=== PATIENT | female | born 1975 | race African-American/Black ===

== ENCOUNTER 2016-08-29 11:15 | Emergency (ER) | payer OTHER ==
[~2016-08-29] VITALS: Ht 157.5 cm; Wt 114.5 kg
[2016-08-29 11:20] VITALS: BP 165/111; PULSE 86; RESP 16; O2SAT 98
[2016-08-29] MEDS ORDERED: ETON68IM3 SQ (11:23)
--- NOTE | 2016-08-29 11:48 | ED.REPORT ---
HPI-Extremity Problem Lower Date of Service Aug 29, 2016 ED Provider: Mario Judd PA-C Ely is an otherwise healthy 40-year-old female presenting with chief complaint of right knee pain. Patient reports her pain began insidiously yesterday, has been worsening the point where it is difficult for her to walk now. Denies trauma, redness, swelling, fever, numbness/tingling, reduced range of motion. Patient denies history of gout, knee surgery, knee pain. Nursing Notes Stated Complaint: KNEE PAIN Chief Complaint: Extremity Trauma Nursing Notes Reviewed: Yes Allergies: Coded Allergies: No Known Allergies (Verified Allergy, Unknown, 08/29/16) Scheduled PRN Acetaminophen (Acetaminophen) 500 Mg Tablet 500-1,000 MG PO Q6H PRN PRN For Pain Naproxen (Naproxen) 500 Mg Tab 500 MG PO BID PRN PRN For Pain Miscellaneous Medications Etonogestrel (Nexplanon) 68 Mg Implant 68 MG SQ General Time Seen by MD: 11:27 Chief Complaint Knee injury left Past Medical History Past Medical History Denies Review of Systems Review of Systems Note: Negative unless stated otherwise in history of present illness Physical Exam General: Well appearing, well developed, obese, no acute distress. Right hip: Full range of motion. Right knee: Full range of motion. Normal inspection with no redness, swelling, bruising. Negative heat. Negative tenderness over the medial and lateral joint lines, medial and lateral epicondyles, patella, tibial tuberosity. No Quinones's cyst noted. No laxity noted with varus/valgus stress, anterior and posterior drawer test. Grind test elicits pain. Right foot/ankle: Normal to inspection, nontender, full range of motion. DP and PT pulses 2+. Sensation and brisk capillary refill intact in distal phalanges. Head: Atraumatic, normocephalic. Eyes: No scleral icterus or injection. No discharge. Vision grossly intact. ENT: Voice clear, hearing grossly intact. Respiratory: No respiratory distress, no increased work of breathing. Speaks in complete sentences. Skin: Warm and dry. Neurological: Grossly nonfocal. Psychological: alert and oriented. Speech appropriate, linear and logical. Behavior appropriate. Initial Vital Signs Vital Signs (First) Date Time Temp Pulse Resp B/P Pulse Ox O2 Delivery O2 Flow Rate FiO2 6/12/17 11:20 36.1 86 16 165/111 98 Room Air Initial VS: Vital signs abnormal (elevated blood pressure) Re-Eval/Medical Decision Med Decision/Clinical Course Obese but otherwise healthy 4-year-old female presents with chief complaint of insidious onset right knee pain beginning yesterday. Finds the knee painful to walk on. Denies clicking, locking, instability. Denies trauma, fever, reduced range of motion. Denies history of knee surgery, knee pain. Physical examination reveals a normal-appearing knee, neuro vascularly intact distal, nontender and with full painless range of motion. Negative instability. Grind test elicits pain at the medial joint line. At this point I believe this is most likely to be a medial meniscus injury, and I am reassured regarding an emergent condition such as fracture, dislocation, infection, gout. Provided Yaron wrap, inspected by me to confirm circulation and sensation. Advise regarding [id number] analgesia, provide prescriptions. Verbally discussed primary care follow-up regarding her elevated blood pressure. Advised regarding primary care follow-up, provided emergency return precautions. Patient verbalized understanding of, and consent to, the plan. Discharge & Departure Impression: Primary Impression: Right medial knee pain Additional Impression: Elevated blood pressure reading Disposition: Home Discharge Condition All VS Reviewed: Yes Condition: Stable Patient Instructions: Knee Pain (ED) Additional Instructions: Evaluation in the emergency department for right knee pain includes history and physical examination, both of which are reassuring that this is unlikely to be caused by an immediately dangerous condition such as infection or fracture. I believe you are stable and safe to be sent home. Rest the knee is much as possible and keep it elevated to reduce swelling. We have placed him in an Yaron wrap here in the emergency department. Feel free to remove this to bathe or adjust for comfort. The pain is best treated with 500 mg of naproxen (Aleve) every 12 hours, or 1000 mg of acetaminophen (Tylenol) every 6 hours. These drugs can be taken at the same time for more severe pain. Follow-up with your primary care provider if your pain continues. At that point you can consider performing x-rays to assess for arthritis or initiating physical therapy. Return to emergency department for new or worsening symptoms including an inability to bend the knee, increasing redness, swelling in the knee or fever. Referrals: Andrea Mcginnis MD (PCP) EDSupervising Provider for APC: Denise Brink MD copies to: Andrea Mcginnis MD, Seth PA-C Aug 29, 2016 11:48
[2016-08-29] MEDS ORDERED: ACET-171 PO (12:03)
[2016-08-29] MEDS ORDERED: NPR500T PO (12:03)
[2016-08-29 12:45] VITALS: BP 154/110; PULSE 85; RESP 18; O2SAT 99
== END 2016-08-29 12:46 | disposition home or self-care (01) ==
LOC: SED 11:15
DX: M25.561 Pain in right knee (principal); R03.0 Elevated blood-pressure reading, without diagnosis of hypertension
CPT/HCPCS: 96372; 99283; J1885

== ENCOUNTER 2016-08-31 13:59 | Emergency (ER) | payer OTHER ==
[~2016-08-31] VITALS: Ht 157.5 cm; Wt 115.0 kg
[~2016-08-31 13:59] MED LIST: ACET-171 PO; ETON68IM3 SQ; NPR500T PO
[2016-08-31 14:11] VITALS: BP 152/112; PULSE 92; RESP 16; O2SAT 100
--- NOTE | 2016-08-31 14:45 | ED.REPORT ---
HPI-Extremity Problem Lower Date of Service Aug 31, 2016 ED Provider: Dino Melissa MD A 40 year old female with no pertinent medical history presents to the ED complaining of right knee pain. The pain began as a dull ache when she was walking at work three days ago and progressively worsened after this. She denies falls or trauma to begin the pain and has been resting the knee since. The pt was seen in the ED two days ago and diagnosed with a possible meniscus injury. She has not improved since and has been unable to get an appointment with her PCP. Nursing Notes Stated Complaint: R KNEE PAIN Chief Complaint: Extremity Trauma Nursing Notes Reviewed: Yes Allergies: Coded Allergies: No Known Allergies (Verified Allergy, Unknown, 08/29/16) Scheduled PRN Acetaminophen (Acetaminophen) 500 Mg Tablet 500-1,000 MG PO Q6H PRN PRN For Pain Naproxen (Naproxen) 500 Mg Tab 500 MG PO BID PRN PRN For Pain Miscellaneous Medications Etonogestrel (Nexplanon) 68 Mg Implant 68 MG SQ General Time Seen by MD: 14:44 Chief Complaint Knee injury right Hx Obtained From: Patient Arrived By: Walk-in Onset Occurred: 3 days ago Symptom Duration: Since onset Recent Healthcare: No recent hospitalization, Recent doctor visit Similar Sx Previous: No Past Medical History Past Medical History none reported Past Surgical History Reports: Smoking History Former Smoker (quit 10 years ago) Social History Other Social History: Good social support Ambulatory Status Independent Review of Systems Musculoskeletal: Reports: Joint pain (right knee), Denies: Neck pain Skin: Denies Rash Complete sys rev & neg: except as marked. Respiratory: Denies: Non-productive cough, Shortness of breath Cardiovascular: Denies: Chest pain GI: Denies: Abdominal pain Physical Exam Initial Vital Signs Vital Signs (First) Date Time Temp Pulse Resp B/P Pulse Ox O2 Delivery O2 Flow Rate FiO2 08/31/16 14:11 36.4 92 16 152/112 100 Room Air Initial VS: Reviewed Lower Extremity / Pelvis / MS: Neurologic intact, Vascular intact full range of motion of the right knee no tenderness with range of motion medial right knee effusion negative Enrico's Ankle / Foot: Atraumatic, Full range of motion General/Constitutional: Awake, Alert Respiratory / Chest: Atraumatic, Breath sounds NL, Breath sounds = bilat, No respiratory distress Cardiovascular: Heart rate NL, Regular rhythm, Heart sounds NL Skin: Atraumatic, Color NL, No rash, Warm, Dry Neurologic: Oriented X3, Speech NL, No motor deficits, No sensory deficits Head / Eyes: Atraumatic, Normocephalic, PERRL, EOMI ENT: Atraumatic, Airway patent, Mucous membranes moist Neck: Atraumatic, Supple, Full range of motion Abdomen: Atraumatic, Soft, Non-tender Back: Atraumatic, Full range of motion Upper Extremity / MS: Atraumatic, Full range of motion Psychiatric: Affect NL, Mood NL Re-Eval/Medical Decision Med Decision/Clinical Course Right knee pain likely strain. Cannot rule out medial meniscus tear injury though she is not tender over her medial joint line, exam. Full range of motion with no tenderness on range of motion. No evidence of infection. No redness or swelling. Recommend rice. Follow-up with primary doctor in 2 weeks if not improved. Return precautions given if any new or worsening pain. Source of Hx: Old records Re-Evaluation/Progress : Time of Eval: 14:44 Patient Status: Condition improved Re-Evaluation/Progress Note: Pt informed of the diagnosis and plan for discharge during the initial interview. The pt understands and agrees with the plan. All questions are addressed at this time. Counseled Regarding: Diagnosis, Need for follow-up, When/why to return to ED Discharge & Departure Impression: Primary Impression: Knee pain Laterality: right Chronicity: acute Qualified Code: M25.561 - Pain in right knee Additional Impression: Knee sprain Encounter type: initial encounter Involved ligament of knee: unspecified ligament Laterality: right Qualified Code: S83.91XA - Sprain of unspecified site of right knee, initial encounter Disposition: Home Discharge Condition All VS Reviewed: Yes Condition: Stable Patient Instructions: Knee Pain (ED) Additional Instructions: Take Naproxen for two weeks as prescribed for pain. Apply ice to the knee for thirty minutes at a time, wrapping the ice in a towel to avoid direct contact with the skin. Rest the knee and walk as little as possible. If the pain persists after two weeks, follow up with your primary care physician for a possible MRI. Return to the emergency department if you experience any new or worsening symptoms including worsening pain. Referrals: Andrea Mcginnis MD (PCP) Scribe Attestation Portions of this note were transcribed by Sami Romero. I, Dr. Melissa personally performed the history, physical exam and medical decision-making; I reviewed and confirmed the accuracy of the information in the transcribed note. Signed by: Danika Stiles, 08/31/16 and 1506. copies to: Andrea Mcginnis MD, Ben M MD Aug 31, 2016 14:45 SAMI ROMERO Aug 31, 2016 15:00
== END 2016-08-31 15:22 | disposition home or self-care (01) ==
LOC: SED 13:59
DX: S83.91XA Sprain of unspecified site of right knee, initial encounter (principal); M25.561 Pain in right knee; X58.XXXA Exposure to other specified factors, initial encounter; Y93.9 Activity, unspecified; Y92.9 Unspecified place or not applicable; Y99.9 Unspecified external cause status; Z87.891 Personal history of nicotine dependence